=== PATIENT | male | born 1975 | race Two or more races ===

== ENCOUNTER 2025-03-05 07:52 | Inpatient (IN) | payer OTHER ==
[~2025-03-05] VITALS: Ht 177.8 cm; Wt 90.7 kg
--- NOTE | 2025-03-05 08:14 | NUR ---
PACIENTE MASCULINO ALERTA Y ORIENTADO REFIERE TENER DOLOR ABDOMINAL. SE MIDE SIGNOS VITALES Y SE UBICA.
[2025-03-05] MEDS ORDERED: MORPHINE SULFATE 4 MG/ML VIAL IV PRN (08:30)
[2025-03-05] MEDS ORDERED: ONDANSETRON HCL 2 MG/ML VIAL IV ONE (08:30)
[2025-03-05] MEDS ORDERED: 0.9 % SODIUM CHLORIDE 1,000 ML IV ONE (08:30)
[2025-03-05] MEDS ORDERED: CEFTRIAXONE SODIUM 1,000 MG VIAL IV ONE (08:30)
[2025-03-05] MEDS ORDERED: TAMSULOSIN HCL 0.4 MG CAP PO ONE ×3 (08:30→14:51)
[2025-03-05] MEDS ORDERED: FAMOtidine 10 MG/ML (4ML VIAL) IV ONE (08:30)
[2025-03-05] MEDS ORDERED: CEFTRIAXONE SODIUM 1,000 MG VIAL ONE (08:51)
[2025-03-05] MEDS ORDERED: ONDANSETRON HCL 2 MG/ML VIAL ONE (08:51)
[2025-03-05] MEDS ORDERED: FAMOTIDINE/PF 20 MG/2 ML VIAL ONE (08:51)
[2025-03-05 08:59] LABS: BASO % 0.5 % (0.1-1.2); EOS # 0.07 (0.04-0.54); EOS % 1.2 % (0.7-7.0); LYMPH # 1.62 (1.18-3.74); LYMPH % 27.1 % (19.3-53.1); MEAN PLATELET VOLUME 10.50 fl (9.4-12.4); MONO # 0.52 (0.24-0.82); MONO % 8.7 % (4.7-12.5); NEUT # 3.71 (1.56-6.13); NEUT % 62.0 % (34.0-71.1); RED CELL DISTRIBUTION WIDTH 12.9 % (11.6-14.4)
--- NOTE | 2025-03-05 09:15 | NUR ---
SE ORIENTA PTE SOBRE TX, REFIERE ENTENDER Y ACEPTAR. SE JAZMIN MUESTRAS DE LABORATORIO, SE CANALIZA Y SE ADMINSITRAN MEDICAMENTOS [place] ORDEN MEDICA. PTE TOLERA Y NO PRESENTA REACCION ADVERSA. PENDIENTE CT SCAN YA NOTIFICADO. PENDIENTE ENTREGA DE MUESTRA PARA U/A.
[2025-03-05 09:26] LABS: INR 0.98
[2025-03-05 09:35] LABS: ALT/SGPT 31.0 U/L (12-78); AST/SGOT 14.0 U/L (15-37); BILIRUBIN TOTAL 0.81 mg/dL (0.3-1.2); BUN CREA RATIO 14.0 (7.0-25.0); CREATININE SERUM 1.3 mg/dL (0.70-1.30); GFR 59.17; GLOBULINA 3.9 G/DL (2.4-3.5); GLUCOSE FASTING 116.0 mg/dL (65-100); OSMOLALITY SERUM 286.0 MOSM/KG (275-295)
--- NOTE | 2025-03-05 11:57 | NUR ---
SE COLOCA IRENE BAJO MEDIDAS ASEPTICAS Y ESTERILES. PTE PRESENTA EGRESO DE 500MLS APROX DE ORINA AMARILLO HAYLEY SIN SEDIMETO, NO SE OBSERVA HEMATURIA.
[2025-03-05 12:33] LABS: URINE APPEARANCE Clear; URINE BILIRRUBIN Negative (NEGATIVE); URINE BLOOD Moderate; URINE COLOR Yellow; URINE GLUCOSE Negative (NEGATIVE); URINE KETONE Negative (NEGATIVE); URINE LEUKOCYTE Negative; URINE NITRATE Negative; URINE PROTEIN Negative (NEGATIVE); URINE UROBILINOGEN 0.2 E.U./dl
[2025-03-05 12:37] LABS: URINE BACTERIA 9.1 uL (0.0-1933); URINE RBC 247.5 uL (0.0-20.8); URINE WBC 2.1 uL (0.0-23.2)
[2025-03-05 12:48] LABS: URINE CAST 0.00 uL (0.0-1.40); URINE EPITHELIAL CELLS 0.9 uL (0.0-38.8)
[2025-03-05 13:41] VITALS: BP 126/66
[2025-03-05] MEDS ORDERED: KETOROLAC TROMETHAMINE 30 MG VIAL IV PRN (14:15)
[2025-03-05] MEDS ORDERED: ACETAMINOPHEN 500 MG GEL..CAP PO SCH (14:16)
[2025-03-05] MEDS ORDERED: KETOROLAC TROMETHAMINE 30 MG VIAL ONE (14:26)
[2025-03-05] MEDS ORDERED: TAMSULOSIN HCL 0.4 MG CAP PO SCH (14:27)
[2025-03-05] MEDS ORDERED: 0.9 % SODIUM CHLORIDE 1,000 ML IV SCH (14:30)
[2025-03-05 22:32] VITALS: BP 106/65; O2SAT 98
[2025-03-06 00:52] VITALS: BP 99/59; O2SAT 97
[2025-03-06 06:49] LABS: BASO % 0.3 % (0.1-1.2); EOS # 0.11 (0.04-0.54); EOS % 1.6 % (0.7-7.0); LYMPH # 1.74 (1.18-3.74); LYMPH % 24.7 % (19.3-53.1); MEAN PLATELET VOLUME 10.70 fl (9.4-12.4); MONO # 0.76 (0.24-0.82); MONO % 10.8 % (4.7-12.5); NEUT # 4.40 (1.56-6.13); NEUT % 62.3 % (34.0-71.1); RED CELL DISTRIBUTION WIDTH 13.0 % (11.6-14.4)
[2025-03-06 07:10] LABS: ERYTHROCYTE SEDIMENTATION RATE 11 mm/hr (0-15)
[2025-03-06 08:09] LABS: BUN CREA RATIO 11.0 (7.0-25.0); CREATININE SERUM 1.61 mg/dL (0.70-1.30); GFR 46.23; GLUCOSE FASTING 95.0 mg/dL (65-100); OSMOLALITY SERUM 285.0 MOSM/KG (275-295)
[2025-03-06 08:59] VITALS: BP 90/59; O2SAT 99
[2025-03-06] MEDS ORDERED: CEFTRIAXONE SODIUM 2,000 MG in 0.9 % SODIUM CHLORIDE 100 ML IV SCH (09:00)
[2025-03-06 10:36] LABS: INR 0.97
[2025-03-06 18:08] VITALS: BP 133/74; O2SAT 100
[2025-03-06 21:23] LABS: BASO % 0.2 % (0.1-1.2); EOS # 0.10 (0.04-0.54); EOS % 1.6 % (0.7-7.0); LYMPH # 1.36 (1.18-3.74); LYMPH % 22.1 % (19.3-53.1); MEAN PLATELET VOLUME 10.70 fl (9.4-12.4); MONO # 0.33 (0.24-0.82); MONO % 5.4 % (4.7-12.5); NEUT # 4.31 (1.56-6.13); NEUT % 70.2 % (34.0-71.1); RED CELL DISTRIBUTION WIDTH 13.1 % (11.6-14.4)
[2025-03-06 21:43] LABS: ALT/SGPT 24.0 U/L (12-78); AST/SGOT 13.0 U/L (15-37); BILIRUBIN TOTAL 0.47 mg/dL (0.3-1.2); BUN CREA RATIO 13.0 (7.0-25.0); CREATININE SERUM 1.29 mg/dL (0.70-1.30); GFR 59.7; GLOBULINA 2.8 G/DL (2.4-3.5); GLUCOSE FASTING 84.0 mg/dL (65-100); OSMOLALITY SERUM 288.0 MOSM/KG (275-295)
[2025-03-07 03:08] VITALS: BP 123/77; O2SAT 98
[2025-03-07 08:41] LABS: BASO % 0.5 % (0.1-1.2); EOS # 0.12 (0.04-0.54); EOS % 1.9 % (0.7-7.0); LYMPH # 1.30 (1.18-3.74); LYMPH % 20.1 % (19.3-53.1); MEAN PLATELET VOLUME 10.50 fl (9.4-12.4); MONO # 0.49 (0.24-0.82); MONO % 7.6 % (4.7-12.5); NEUT # 4.51 (1.56-6.13); NEUT % 69.6 % (34.0-71.1); RED CELL DISTRIBUTION WIDTH 12.8 % (11.6-14.4)
[2025-03-07 08:57] LABS: ALT/SGPT 28.0 U/L (12-78); AST/SGOT 17.0 U/L (15-37); BILIRUBIN TOTAL 0.94 mg/dL (0.3-1.2); BUN CREA RATIO 12.0 (7.0-25.0); CREATININE SERUM 1.39 mg/dL (0.70-1.30); GFR 54.77; GLOBULINA 3.0 G/DL (2.4-3.5); GLUCOSE FASTING 100.0 mg/dL (65-100); OSMOLALITY SERUM 287.0 MOSM/KG (275-295)
[2025-03-07 09:09] VITALS: BP 116/70; O2SAT 99
[2025-03-07] MEDS ORDERED: CHLORHEXIDINE GLUCONATE 120 ML BOTTLE TOP ONE (16:18)
[2025-03-07] MEDS ORDERED: IOVERSOL 320 MG/ML - 50 ML VIAL IV ONE (16:18)
[2025-03-07] MEDS ORDERED: KETOROLAC TROMETHAMINE 30 MG VIAL ONE (18:29)
[2025-03-07 22:37] VITALS: BP 113/70
[2025-03-08 03:11] VITALS: BP 127/81; O2SAT 97
[2025-03-08 08:00] VITALS: BP 126/75; O2SAT 97
[2025-03-08] MEDS ORDERED: KETOROLAC TROMETHAMINE 60 MG VIAL IM NR (09:00)
== END 2025-03-08 12:50 | disposition home or self-care (01) | DRG 660 ==
LOC: ER 07:53 → MEDJ 13:57 → SEC-K 13:57 → MEDJ 16:07
PROVIDERS: General Practice; Internal Medicine Infectious Disease; Urology; ADMIT Internal Medicine; ATTEND Internal Medicine
PROC: BW21ZZZ Computerized Tomography (CT Scan) of Abdomen and Pelvis (ICD-10-PCS; 2025-03-05)
PROC: 0T768DZ Dilation of Right Ureter with Intraluminal Device, Via Natural or Artificial Opening Endoscopic (ICD-10-PCS; principal; 2025-03-07 15:30)
DX: N20.1 Calculus of ureter (principal); N17.9 Acute kidney failure, unspecified; R10.A1 Flank pain, right side; N20.0 Calculus of kidney